=== PATIENT | male | born 1935 | race Caucasian/White ===

== ENCOUNTER 2021-01-06 05:08 | Emergency (ER) | payer MEDICARE, OTHER ==
[~2021-01-06] VITALS: Ht 177.8 cm; Wt 73.5 kg
[~2021-01-06 05:08] MED LIST: AMIT75 PO; Aspirin EC81 MG PO; BECL25NI; FENO145 PO; FLAX PO; Multiple Vitam1 EAC1 PO; SYNTHROID25 MCG PO; Salmon Oil 1,01 EACH PO
== END 2021-01-06 05:54 | disposition home or self-care (01) ==
LOC: ER 05:08
DX: R51.9 Headache, unspecified (principal); Z88.6 Allergy status to analgesic agent; Z88.8 Allergy status to other drugs, medicaments and biological substances; Z79.899 Other long term (current) drug therapy; Z79.82 Long term (current) use of aspirin
CPT/HCPCS: 99283; A9270

== ENCOUNTER 2021-09-26 05:34 | Emergency (ER) | payer MEDICARE, OTHER ==
[~2021-09-26] VITALS: Ht 177.8 cm; Wt 79.4 kg
== END 2021-09-26 08:28 | disposition home or self-care (01) ==
LOC: ER 05:34
DX: M47.812 Spondylosis without myelopathy or radiculopathy, cervical region (principal); R51.9 Headache, unspecified; E03.9 Hypothyroidism, unspecified; E78.5 Hyperlipidemia, unspecified; Z79.899 Other long term (current) drug therapy
CPT/HCPCS: 70450; 72125; 99284-25; A9270